=== PATIENT | male | born 2005 | race Caucasian/White ===

== ENCOUNTER 2025-04-30 11:13 | Emergency (ER) | payer BC, SELFPAY ==
[2025-04-30 11:21] VITALS: BP 130/90; PULSE 50; TEMP 36.4; O2SAT 99; BMI 24.2
--- NOTE | 2025-04-30 11:32 | XR_ITS ---
The [address] [address] Patient Name: ARIELLA LECHUGA MRN: [id number] date: 2005 Sex: M Assigned Patient Location: ED.MAIN Current Patient Location: ED.MAIN Accession/Order Number: [id number] Exam Date: 04/30/2025 11:50 Report Date: 04/30/2025 12:41 At the request of: PINO DURAN MD Procedure: XR chest 1V XR chest 1V 04/30/2025 12:12 PM SIGNS AND SYMPTOMS: Chest pain, nausea and vomiting PROTOCOL: Frontal radiograph of the chest COMPARISON: None FINDINGS: The trachea is midline. The heart and mediastinal structures are within normal limits. The lung parenchyma is clear. The bony thorax is intact. XR/XR chest 1V IMPRESSION: No acute cardiopulmonary pathology. Impression dictated by: Keo Lama M.D. 04/30/2025 12:41 PM Dictation Location: [place] [address] Electronically authenticated by: [id number] Y Date: 04/30/2025 12:41
[2025-04-30 11:40] LABS: Hematocrit 45.5 % (42.0-54.0); Hemoglobin 16.0 g/dL (14.0-18.0); Immature Granulocytes Abs Auto 0.04 10^3/uL (0.00-0.03); Immature Granulocytes Pct Auto 0.4 % (0.0-0.5); Lymphocytes Absolute Auto 0.8 10^3/uL (1.2-3.8); Mean Corpuscular HGB Conc 35.2 g/dL (29.9-35.2); Mean Corpuscular Hemoglobin 31.6 pg (25.9-34.0); Mean Corpuscular Volume 89.7 fL (80.0-94.0); Platelet Count 279 10^3/uL (150-450); Red Blood Count 5.07 10^6/uL (4.70-6.10); White Blood Count 10.7 10^3/uL (4.0-11.0)
[2025-04-30] MEDS: 0.9 % SODIUM CHLORIDE 1,000 ML 1000 ML IV (11:46)
[2025-04-30] MEDS: FAMOTIDINE/PF 20 MG/2 ML VIAL IV (11:46)
[2025-04-30 11:59] LABS: Magnesium 2.2 mg/dL (1.8-2.4)
[2025-04-30 12:05] LABS: Alanine Aminotransferase 25 U/L (16-63); Albumin Globulin Ratio 1.3; Albumin Level 4.7 g/dL (3.4-5.0); Alkaline Phosphatase 64 U/L (46-116); Anion Gap 14.5; Aspartate Amino Transferase 23 U/L (15-37); Blood Urea Nitrogen 15.0 mg/dL (6.4-19.3); Calcium 9.9 mg/dL (8.5-10.1); Carbon Dioxide 30.5 mmol/L (21.0-32.0); Chloride 97 mmol/L (98-107); Estimated GFR (African America >60 (>=60 mL/min/1.73m^2); Estimated GFR (Non-African Ame >60 (>=60 mL/min/1.73m^2); Globulin 3.7 g/dL; Glucose 110 mg/dL (74-106); Lipase 21.0 U/L (16.0-77.0); Potassium 4.0 mmol/L (3.5-5.1); Sodium 138 mmol/L (136-145); Total Protein 8.4 g/dL (6.4-8.2)
--- NOTE | 2025-04-30 12:59 | ED.GENADUL1 ---
HPI HPI - General Adult General Chief complaint: Nausea/Vomiting/Diarrhea Stated complaint: NAUSEA,VOMITING Time Seen by Provider: 04/30/25 11:28 Source: patient Mode of arrival: walk-in Limitations: no limitations History of Present Illness HPI narrative: The patient is 19 years old is coming to the ER with a concern of nausea vomiting for the last 2 days after he was drinking alcohol, patient did not mention a specific amount but he mentioned that he was drinking 2 days ago when he started having nausea and vomiting and not able to keep anything in The patient has no other concerns except that she had some chest pain from all the coughing Related Data Previous Rx's ?Medication ?Instructions ?Recorded famotidine 20 mg tablet (Pepcid) 20 mg PO BID #10 tabs 04/30/25 ondansetron 4 mg disintegrating 4 mg PO Q8H PRN nausea and 04/30/25 tablet vomiting 48 hours #20 tabs Allergies Allergy/AdvReac Type Severity Reaction Status Date / Time No Known Drug Allergies Allergy Verified 04/30/25 11:20 Review of Systems ROS Status of ROS 10 or more systems reviewed and unremarkable except as noted in history and below PFSH PFSH Social History Little interest or pleasure in doing things: not at all Feeling down, depressed, or hopeless: not at all Exam Narrative Exam Narrative: Nurses notes and vital signs reviewed and patient is not hypoxic. General: Well-appearing and in no apparent distress. Skin: Warm, dry, no pallor noted. No rash. Head: Normocephalic, atraumatic. Neck: Supple, non-tender. Eye: Pupils are equal, round and EOMI. No scleral icterus. Ears, Nose, Mouth, and Throat: TM are clear, no nasal mucosal hypertrophy. Oral mucosa is moist, no posterior oropharynx erythema, uvula is mid-line Cardiovascular: Regular Rate and Rhythm without murmur, gallop or rub. Respiratory: No accessory muscle use or respiratory distress. Lungs are clear to auscultation, no wheezing, rales or rhonchi Chest Wall: no tenderness Back: No midline thoracic or lumbar vertebral tenderness. No CVA tenderness Musculoskeletal: normal ROM, no calf or popliteal tenderness, no lower extremity edema/swelling GI: Abdomen is soft, non-distended. Normal bowel sounds. No masses appreciated. No tenderness to palpation. No rebound, guarding, or rigidity noted. Neurological: A&O x4. No cranial nerve dysfunction observed. No truncal ataxia. Moves all extremities. Sensation intact. Psychiatric: Cooperative and interactive. Normal mood and affect. Constitutional Vital Signs, click to edit/add: Last Vital Signs Temp 97.5 F L 04/30/25 11:21 Pulse 68 04/30/25 13:09 Resp 16 04/30/25 13:09 BP 130/90 04/30/25 11:21 Pulse Ox 99 04/30/25 13:09 Course Vital Signs Vital signs: Vital Signs Temperature 97.5 F L 04/30/25 11:21 Pulse Rate 50 L 04/30/25 11:21 Respiratory Rate 16 04/30/25 11:21 Blood Pressure 130/90 04/30/25 11:21 Pulse Oximetry 99 04/30/25 11:21 Temperature 97.5 F L 04/30/25 11:21 Pulse Rate 68 04/30/25 13:09 Respiratory Rate 16 04/30/25 13:09 Blood Pressure 130/90 04/30/25 11:21 Pulse Oximetry 99 04/30/25 13:09 Medical Decision Making [facility] Narrative Medical decision making narrative: The patient provided with IV fluids in addition to the CBC and chemistry showing no acute significant pathology Patient provided with Zofran as well as Pepcid Lipase is not elevated and the patient chest x-ray showed no acute pathology Patient feeling much better after initial treatment he was discharged home with Zofran as well as Pepcid and continue supportive care Advised against drinking alcohol especially with him being 19 years old The patient is to follow up with primary care physician in next 2-3 days or to return to the emergency department should any of the signs or symptoms worsen or new symptoms develop. The patient agrees with the following Diagnosis and Treatment plan and the patient will be discharged home. Lab Data Labs: Lab Results 04/30/25 Range/Units 11:32 WBC 10.7 (4.0-11.0) 10^3/uL RBC 5.07 (4.70-6.10) 10^6/uL Hgb 16.0 (14.0-18.0) g/dL Hct 45.5 (42.0-54.0) % MCV 89.7 (80.0-94.0) fL MCH 31.6 (25.9-34.0) pg MCHC 35.2 (29.9-35.2) g/dL RDW 12.1 (11.0-15.0) % Plt Count 279 (150-450) 10^3/uL MPV 12.8 (9.5-13.5) fL Neut % (Auto) 86.0 H (43.0-75.0) % Lymph % (Auto) 7.5 L (20.5-60.0) % [place] % (Auto) 5.7 (1.7-12.0) % Eos % (Auto) 0.1 L (0.9-7.0) % Baso % (Auto) 0.3 (0.2-2.0) % Neut # (Auto) 9.2 H (1.4-6.5) 10^3/uL Lymph # (Auto) 0.8 L (1.2-3.8) 10^3/uL [place] # (Auto) 0.6 (0.3-0.8) 10^3/uL Eos # (Auto) 0.0 (0.0-0.7) 10^3/uL Baso # (Auto) 0.0 (0.0-0.1) 10^3/uL Abs Immat Gran (auto) 0.04 H (0.00-0.03) 10^3/uL Imm/Tot Granulo (auto) 0.4 (0.0-0.5) % Sodium 138 (136-145) mmol/L Potassium 4.0 (3.5-5.1) mmol/L Chloride 97 L (98-107) mmol/L Carbon Dioxide 30.5 (21.0-32.0) mmol/L Anion Gap 14.5 BUN 15.0 (6.4-19.3) mg/dL Creatinine 0.88 (0.70-1.30) mg/dL Est GFR ( Amer) >60 (>=60 mL/min/1.73m^2) Est GFR (Non-Af Amer) >60 (>=60 mL/min/1.73m^2) BUN/Creatinine Ratio 17.0 Glucose 110 H (74-106) mg/dL Calcium 9.9 (8.5-10.1) mg/dL Magnesium 2.2 (1.8-2.4) mg/dL Total Bilirubin 1.3 H (0.2-1.0) mg/dL AST 23 (15-37) U/L ALT 25 (16-63) U/L Alkaline Phosphatase 64 (46-116) U/L Total Protein 8.4 H (6.4-8.2) g/dL Albumin 4.7 (3.4-5.0) g/dL Globulin 3.7 g/dL Albumin/Globulin Ratio 1.3 Lipase 21.0 (16.0-77.0) U/L Ethanol Quant <3 mg/dL Discharge Plan Discharge Chief Complaint: Nausea/Vomiting/Diarrhea Clinical Impression: Alcoholic gastritis Patient Disposition: Home, Self-Care Time of Disposition Decision: 13:02 Condition: Good Prescriptions / Home Meds: New famotidine [Pepcid] 20 mg tablet 20 mg PO BID Qty: 10 0RF ondansetron 4 mg tablet,disintegrating 4 mg PO Q8H PRN (Reason: nausea and vomiting) 2 Days Qty: 20 0RF Print Language: Bhutanese Instructions: Gastritis (ED), Diet for Stomach Ulcers and Gastritis (ED) Referrals: CHRISTOPHER YANG [Primary Care Provider, Family Practice] - 1 week Discharge Date/Time: 04/30/25 13:12
[2025-04-30 13:09] VITALS: PULSE 68; O2SAT 99
== END 2025-04-30 13:12 | disposition home or self-care (01) ==
PROVIDERS: Emergency Provider Emergency Medicine; PCP Family Medicine
DX: K29.20 Alcoholic gastritis without bleeding (principal)
CPT/HCPCS: 36415; 71045; 80053; 80320; 83690; 83735; 85025; 96361; 96374; 96375; 99284; J2405; J3490